=== PATIENT | male | born 1950 | race Caucasian/White ===

== ENCOUNTER 2025-04-08 15:50 | Emergency (ER) | payer OTHER, SELFPAY ==
[2025-04-08 15:52] VITALS: BP 156/65
[2025-04-08 16:18] LABS: Hematocrit 30.6 % (39.0-52.0); Hemoglobin 9.5 g/dL (13.0-18.0); Mean Corp Hgb Conc. 31.0 g/dL (33.0-37.0); Mean Corpuscular Volume 83.6 fL (80.0-94.0); Nucleated Red Blood Cells % 0 % (-); Platelet Count 231 10^3/uL (130-400); Red Cell Dist. Width 14.8 % (11.5-14.5)
[2025-04-08 16:27] LABS: ALT (SGPT) 12 U/L (0-50); AST (SGOT) 18 U/L (17-59); Albumin 3.9 g/dl (3.5-5.0); Alkaline Phosphatase 60 U/L (38-126); Blood Urea Nitrogen 17 mg/dl (9-20); Calcium 8.2 mg/dl (8.4-10.2); Carbon Dioxide 26 mmol/L (22-30); Chloride 108 mmol/L (98-107); Glucose 147 mg/dl (70-99); Potassium 4.5 mmol/L (3.5-5.1); Sodium 139 mmol/L (135-145); Total Protein 6.0 g/dl (6.3-8.2); eGFR > 60.00
[2025-04-08 16:37] LABS: Troponin I < 0.012 ng/ml
[2025-04-08 20:10] VITALS: BP 142/63
[2025-04-08 20:12] VITALS: BP 161/70
--- NOTE | 2025-04-08 20:12 | ED.GENMED ---
History of Present Illness
General
Chief Complaint: Cardiac Symptoms
Source: patient
Exam Limitations: none
Time Seen by Provider: 04/08/25 19:31
History of Present Illness
History of Present Illness:
75 year old male presents complaining of fatigue and dizziness. He last evening to go to the bathroom and fell because he felt unsteady. He sustained no injuries from the fall. He is on Eliquis for history of DVT. He notes head pressure. He
denies any vision change. No unilateral numbness or weakness. He notes generalized fatigue. Denies any dark or tarry stools. No chest pain. No shortness of breath.
Past History
Past History
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
ED Past Surgical History: None
Social History
Tobacco: Non-smoker
Living: alone
Employment: Employed
Phy Exam
Physical Exam
Physical Exam:
General: Well-appearing male no acute respiratory distress
HEENT: NC/AT PEERL
Heart: RRR
Lungs: CTA
Neuro: Alert and oriented wrodec-mo-mxco intact mild horizontal nystagmus. [place] does not reproduce his dizziness. Sitting up does make him feel dizzy. No unilateral deficit.
Skin is warm no rash
Course
Orders/Labs/Results
Orders:
Orders
04/08/25 15:51
Electrocardiogram (*1) Urgent
Reason for Study: Vertigo / Dizzy
EKG- Treatment ONCE
04/08/25 16:04
Complete Blood Count/With Diff Urgent
Comprehensive Metabolic Panel Urgent
Lyme Progressive Urgent
Comment: ADD ON
Troponin I Urgent
04/08/25 20:00
Add On- LAB Urgent
Tests Added?: lyme progressive
CT Head W/o Iv Contrast Urgent
Comment:
Reason For Exam: dizzy
Orthostatic VS- Treatment ONCE
04/08/25 21:01
Acetaminophen [Tylenol] 650 mg PO NOW STA
Abnormal Lab Results
04/08/25
16:04
RBC 3.66 L 10^6/uL
(4.70-6.10)
Hgb 9.5 L g/dL
(13.0-18.0)
Hct 30.6 L %
(39.0-52.0)
MCH 26.0 L pg
(27.0-31.0)
MCHC 31.0 L g/dL
(33.0-37.0)
RDW 14.8 H %
(11.5-14.5)
Absolute Lymphs (auto) 1.0 L 10^3/uL
(1.2-3.4)
Lymphocytes % 15.4 L %
(20.5-51.1)
Chloride 108 H mmol/L
(98-107)
Glucose 147 H mg/dl
(70-99)
Calcium 8.2 L mg/dl
(8.4-10.2)
Total Protein 6.0 L g/dl
(6.3-8.2)
04/08/25 16:04
04/08/25 16:04
Vital Signs
Initial and Last Documented VS:
Initial Vital Signs
Temp Pulse Resp BP Pulse Ox
98.2 F 80 16 156/65 98
04/08/25 15:52 04/08/25 15:52 04/08/25 15:52 04/08/25 15:52 04/08/25 15:52
Last Documented Vital Signs
Temp Pulse Resp BP Pulse Ox
98.2 F 68 14 147/67 98
04/08/25 15:52 04/08/25 20:15 04/08/25 20:15 04/08/25 20:14 04/08/25 20:15
MDM/Problems Addressed
Differential Diagnosis Includes:
Fatigue and dizziness. Differential could include anemia versus vertigo. He is on Eliquis and he has head pressure we will check for bleeding in his brain. Patient is denying any dark or tarry stools. He denies any blood loss from anywhere. His
partner tells me his hemoglobin was 9 several weeks ago. It is 9.5 today.
*Pulse Oximetry
SaO2: 98
Oxygen Mode of Delivery: Room air
Patient hypoxic: no
*Critical Care Note
Total Time (30-74mins, 75-104mins- exclusive of procedures): Not Applicable
Update Note
Update Note:
CT negative. Orthostatics reassuring. Hgb noted. Denying black/dark stools. Patient expresses his desire to go home. He has an appointment with his [employer] worker in 3 days. Advise he return if needed
ED Attending Note
-
Portions of this chart may have been created with voice recognition software.� Occasional wrong word or��sound alike� substitutions may have occurred due to the inherent limitations of voice recognition software.
Discharge Plan
Departure
Patient Disposition: Home (Routine Discharge)
Date of Disposition: 04/08/25
Time of Disposition: 23:09
Patient with high blood pressure during this ER visit?: No
Discharge Problem:
Anemia, Dizziness
Prescriptions:
No Action
jltckmhe-ktsutjflxqhy-kjzyjds [Triumeq] 1 EACH tablet
1 ea PO DAILY
clopidogrel 75 MG tablet
75 mg PO DAILY
aspirin 81 MG tablet,delayed release (DR/EC)
81 mg PO DAILY
cyanocobalamin (vitamin B-12) 1,000 MCG tablet
1,000 mcg PO DAILY
amlodipine 2.5 MG tablet
2.5 mg PO DAILY
famotidine 20 MG tablet
20 mg PO BID
ascorbic acid (vitamin C) [Vitamin C] 500 MG tablet
500 mg PO DAILY
sertraline 50 MG tablet
50 mg PO DAILY
coenzyme Q10 [Co Q-10] 100 MG capsule
100 mg PO HS
rosuvastatin [Crestor] 40 MG tablet
40 mg PO HS
zinc sulfate 220 MG capsule
220 mg PO DAILY
cholecalciferol (vitamin D3) 1,000 UNITS tablet
1,000 units PO DAILY
Lactobac 2-Bifido 1-S. therm [High Potency Probiotic] 1 CAP capsule
1 cap PO DAILY
cannabidiol [Epidiolex] 1 UNIT solution
0 unit PO 10/D
Patient Comments:
06/23/21: Per pt, he vapes marijuana consistently throughout the day
Referrals:
NONE,* [Family Provider, Internal Medicine]
Activity Restrictions/Additional Instructions:
Please follow-up with your [employer] worker as planned. Return here for worsening symptoms.
Interventions
Interventions:
*Risk Screen - Suicide Last Done: 04/08/25 15:52
*Neglect/Abuse Screening Last Done: 04/08/25 15:52
ED- Pulmonary Assessment Last Done: 04/08/25 21:15
ED- Cardiac Assessment Last Done: 04/08/25 21:15
Discharge Date and Time
Print Language: YORUBA
[2025-04-08 20:14] VITALS: BP 147/67
[2025-04-08 20:17] VITALS: BP 142/63; BP 147/67; BP 161/70; PULSE 58; PULSE 61; PULSE 67
[2025-04-08] MEDS: TYLENOL 650 MG PO (21:14)
== END 2025-04-08 23:19 | disposition home or self-care (01) ==
LOC: EMR 15:50
PROVIDERS: Emergency Medicine; EMERGENCY PHYSICIAN Emergency Medicine
DX: D64.9 Anemia, unspecified (principal); R42 Dizziness and giddiness; Z86.718 Personal history of other venous thrombosis and embolism; Z86.73 Personal history of transient ischemic attack (TIA), and cerebral infarction without residual deficits; Z79.01 Long term (current) use of anticoagulants; B20 Human immunodeficiency virus [HIV] disease
CPT/HCPCS: 99284; 70450; 80053; 84484; 85025; 86618; 93005